=== PATIENT | male | born 1990 | race Caucasian/White ===

== ENCOUNTER 2022-12-26 20:53 | Emergency (ER) | payer SELFPAY ==
[~2022-12-26] VITALS: Ht 165.1 cm; Wt 70.3 kg
[~2022-12-26 20:53] MED LIST: ACHD5005 PO
--- NOTE | 2022-12-26 21:58 | ED Psychosocial ---
General Stated Complaint: SUICIDAL IDEATION/PAIN ALL OVER Source: patient, other (GIRLFRIEND) (JEAN ADRIAN DO) History of Present Illness Date Seen by Provider: Dec 26, 2022 Time Seen by Provider: 21:42 Initial Comments PT ARRIVES VIA POV FROM HOME WITH GIRLFRIEND PT C/O SUICIDAL IDEATIONS FOR A COUPLE OF DAYS, PT HAS NO PLAN AND NO ATTEMPT. PT HAS LONGSTANDING DRUG AND ALCOHOL ABUSE PT STATES HE HAS BEEN DRINKING 1 1/2 PINTS OF VODKA A DAY FOR AT LEAST THE LAST 10 YEARS. HE HAD 1 PINT OF VODKA TODAY, AND LAST DRINK WAS JUST PRIOR TO ARRIVAL PT HAS LONGSTANDING DRUG ABUSE--MOSTLY OPIATES--HYDROCODONE, OXYCODONE/OXY CONTINE, AND SUBOXONE--STATES HE GETS THEM OFF THE STREET, AND HAS NEVER BEEN PRESCRIBED THESE MEDICATIONS FOR HIMSELF. ALSO USES THC. HE HAD 1 SUBOXONE TODAY PT WAS IN [place] LAST MONTH, AND WAS WITHOUT DRUGS FOR A COUPLE OF DAYS AND DID HAVE SOME WITHDRAWL SYMPTOMS. HE DID NOT SEEK CARE HE HAS NEVER HAD ANY TREATMENT FOR SUBSTANCE ABUSE HE DID GO TO [facility] LAST YEAR SOMETIME, STATES HE WAS "TRYING TO GET HELP" BUT HE NEVER WENT BACK. HE DENIES ANY MEDICAL PROBLEMS AND THE ONLY MEDICATIONS HE TAKES ARE THE ONES HE GETS ON THE STREET. SYMPTOMS NO DIFFERENT TODAY IN ANY WAY. GIRLFRIEND STATES SHE JUST GOT BACK IN TOWN TODAY, AND THEN BROUGHT HIM HERE. PCP: NONE (JEAN ADRIAN DO) Allergies and Home Medications Allergies Coded Allergies: No Known Drug Allergies (Unverified , 04/24/16) Patient Home Medication List Home Medication List Reviewed: Yes (MENDY PEREIRA MD) Chlordiazepoxide HCl (Chlordiazepoxide HCl) 25 Mg Capsule, 25 MG PO Q6H Prescribed by: MENDY PEREIRA on 12/27/22903 Hydrocodone Bit/Acetaminophen (Lortab 5 Mg Tablet) 1 Each Tablet, 1-2 EACH PO Q4H PRN for PAIN Prescribed by: ELEANOR OLGUIN on 04/24/162031 Review of Systems Constitutional: no symptoms reported EENTM: no symptoms reported Respiratory: no symptoms reported Cardiovascular: no symptoms reported Gastrointestinal: no symptoms reported Genitourinary: no symptoms reported Musculoskeletal: no symptoms reported Skin: no symptoms reported Psychiatric/Neurological: See HPI (JEAN ADRIAN DO) Past Ekdcqcn-Unetis-Gresqa Hx Patient Social History Tobacco Use?: Yes Tobacco type used: Cigarettes Smoking Status: Former Smoker Use of E-Cig and/or Vaping dev: Yes E-Cig or Vaping type used: Nicotine Use of E-Cig and/or Vaping Mendez: Current Everyday User Substance use?: Yes Substance type: Opiates/Opioids, Misuse of prescript meds, Marijuana Substance frequency: Daily Alcohol Use?: Yes Alcohol type: Hard Liquor Alcohol Frequency: Daily (JEAN ADRIAN DO) Immunizations Up To Date Tetanus Booster (TDap): Less than 5yrs (JEAN ADRIAN DO) Past Medical History Surgeries: Yes (LEFT HAND, RIGHT KNEE) Orthopedic Respiratory: No Cardiac: No Neurological: No Reproductive Disorders: No Sexually Transmitted Disease: No Genitourinary: No Gastrointestinal: No Musculoskeletal: Yes (LEFT HAND AND RIGHT KNEE SURGERIES) Fractures Endocrine: No HEENT: No Psychosocial: Yes (POLYSUBSTANCE ABUSE) Integumentary: No Blood Disorders: No (JEAN ADRIAN DO) Family Medical History No Pertinent Family Hx SOCIAL HISTORY: -SMOKED CIGARETTES IN PAST, NOW VAPES NICOTINE -ETOH--DRINKS 1 1/2 PINTS OF VODKA/DAY -DRUGS--HYDROCODONE, OXYCODONE/OXYCONTIN, SUBOXONE, THC (JEAN ADRIAN DO) Physical Exam Vital Signs - First Documented 12/26/22 21:42 Temp 36.7 Pulse 146 Resp 18 B/P (MAP) 169/125 (140) Pulse Ox 97 O2 Delivery Room Air (MENDY PEREIRA MD) Capillary Refill : (JEAN ADRIAN DO) Height, Weight, BMI Height: 5'4" Weight: 145lbs. oz. 65.784378cu; BMI Method:Stated General Appearance: WD/WN, no apparent distress, other (SITTING GUINEAN-STYLE. DOES NOT APPEAR ILL OR TO BE IN ANY DISCOMFORT OR DISTRESSS. 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, no motor/sensory deficits, alert, oriented x 3 Appearance/Memory: no memory impairment Behavior/Eye Contact: cooperative, good eye contact, normal speech Thoughts/Hallucinations: no apparent hallucination Skin: normal color, warm/dry, tattoos/piercings (EXTENSIVE TATTOOS) (JEAN ADRIAN DO) Progress/Results/Core Measures Results/Orders Lab Results Laboratory Tests Test 12/26/22 22:10 12/26/22 22:24 Range/Units White Blood Count 6.1 4.3-11.0 10^3/uL Red Blood Count 5.37 4.30-5.52 10^6/uL Hemoglobin 17.5 13.3-17.7 g/dL Hematocrit 49 40-54 % Mean Corpuscular Volume 91 80-99 fL Mean Corpuscular Hemoglobin 33 25-34 pg Mean Corpuscular Hemoglobin Concent 36 32-36 g/dL Red Cell Distribution Width 13.2 10.0-14.5 % Platelet Count 235 130-400 10^3/uL Mean Platelet Volume 10.1 9.0-12.2 fL Immature Granulocyte % (Auto) 0 % Neutrophils (%) (Auto) 60 42-75 % Lymphocytes (%) (Auto) 32 12-44 % Monocytes (%) (Auto) 7 0-12 % Eosinophils (%) (Auto) 1 0-10 % Basophils (%) (Auto) 1 0-10 % Neutrophils # (Auto) 3.6 1.8-7.8 10^3/uL Lymphocytes # (Auto) 1.9 1.0-4.0 10^3/uL Monocytes # (Auto) 0.4 0.0-1.0 10^3/uL Eosinophils # (Auto) 0.1 0.0-0.3 10^3/uL Basophils # (Auto) 0.0 0.0-0.1 10^3/uL Immature Granulocyte # (Auto) 0.0 0.0-0.1 10^3/uL Percent Immature Platelet Fraction 6.4 0.0-7.6 % Sodium Level 140 135-145 MMOL/L Potassium Level 3.6 3.6-5.0 MMOL/L Chloride Level 98 98-107 MMOL/L Carbon Dioxide Level 21 21-32 MMOL/L Anion Gap 21 H 5-14 MMOL/L Blood Urea Nitrogen 13 7-18 MG/DL Creatinine 1.23 0.60-1.30 MG/DL Estimat Glomerular Filtration Rate 80 BUN/Creatinine Ratio 11 Glucose Level 125 H 70-105 MG/DL Calcium Level 10.8 H 8.5-10.1 MG/DL Corrected Calcium 8.5-10.1 MG/DL Magnesium Level 2.2 1.6-2.4 MG/DL Total Bilirubin 1.1 H 0.1-1.0 MG/DL Aspartate Amino Transf (AST/SGOT) 77 H 5-34 U/L Alanine Aminotransferase (ALT/SGPT) 54 0-55 U/L Alkaline Phosphatase 72 40-136 U/L Total Creatine Kinase 152 30-200 U/L Creatine Kinase MB 1.4 <6.6 NG/ML Myoglobin 39.6 10.0-92.0 NG/ML Troponin I < 0.028 <0.028 NG/ML B-Type Natriuretic Peptide 12.3 <100.0 PG/ML Total Protein 9.5 H 6.4-8.2 GM/DL Albumin 5.0 H 3.2-4.5 GM/DL Amylase Level 105 25-125 U/L TSH [facility] Testing 2.51 0.35-4.94 UIU/ML Salicylates Level < 5.0 L 5.0-20.0 MG/DL Acetaminophen Level < 10 L 10-30 UG/ML Serum Alcohol 382 *H <10 MG/DL Urine Color YELLOW Urine Clarity CLEAR Urine pH 6.5 5-9 Urine Specific [place] 1.020 1.016-1.022 Urine Protein 3+ H NEGATIVE Urine Glucose (UA) NEGATIVE NEGATIVE Urine Ketones 3+ H NEGATIVE Urine Nitrite NEGATIVE NEGATIVE Urine Bilirubin NEGATIVE NEGATIVE Urine Urobilinogen 0.2 < = 1.0 MG/DL Urine Leukocyte Esterase NEGATIVE NEGATIVE Urine RBC (Auto) 1+ H NEGATIVE Urine RBC RARE /HPF Urine WBC 0-2 /HPF Urine Crystals NONE /LPF Urine Bacteria NEGATIVE /HPF Urine Casts NONE /LPF Urine Mucus SMALL H /LPF Urine Culture Indicated NO Urine Opiates Screen POSITIVE H NEGATIVE Urine Oxycodone Screen POSITIVE H NEGATIVE Urine Methadone Screen NEGATIVE NEGATIVE Urine Propoxyphene Screen NEGATIVE NEGATIVE Urine Barbiturates Screen NEGATIVE NEGATIVE Ur Tricyclic Antidepressants Screen NEGATIVE NEGATIVE Urine Phencyclidine Screen NEGATIVE NEGATIVE Urine Amphetamines Screen NEGATIVE NEGATIVE Urine Methamphetamines Screen NEGATIVE NEGATIVE Urine Benzodiazepines Screen NEGATIVE NEGATIVE Urine Cocaine Screen NEGATIVE NEGATIVE Urine Cannabinoids Screen NEGATIVE NEGATIVE Influenza Type A (RT-PCR) Not Detected Not Detecte Influenza Type B (RT-PCR) Not Detected Not Detecte SARS-CoV-2 RNA (RT-PCR) Not Detected Not Detecte (MENDY PEREIRA MD) Medications Given in ED (MENDY PEREIRA MD) Vital Signs/I&O 12/27/22 09:23 Temp 36.0 Pulse 114 Resp 16 B/P (MAP) 139/101 Pulse Ox 95 O2 Delivery Room Air 12/27/22 00:00 Intake Total 1000 ml Balance 1000 ml (MENDY PEREIRA MD) Progress Progress Note : Progress Note PLACED IN ROOM 8 / SECURE ROOM MENTAL HEALTH SCREEN LABS/TESTS INITIATED PT IS TACHYCARDIC AND HYPERTENSIVE ON ARRIVAL VITALS NORMALIZED WITHOUT TREATMENT GIVEN: -IV FLUIDS SERUM ALCOHOL LEVEL IS TOO HIGH FOR MENTAL HEALTH SCREEN AT THIS TIME NO ICU OR STEP DOWN BEDS ARE AVAILABLE AT THIS TIME. WILL HOLD IN ER UNTIL BED BECOMES AVAILABLE UPSTAIRS, OR UNTIL PT IS SOBER ENOUGH TO DO MENTAL HEALTH SCREEN 0225--PT CONTINUES TO REMAIN CALM AND COOPERATIVE. IV FLUIDS CONTINUED. VITALS STABLE. 0430--PT CONTINUES TO REMAIN CALM AND COOPERATIVE. IV FLUIDS CONTINUED. VITALS STABLE. REVIEWED PRIOR RECORDS--ALL ER VISITS, LAST VISIT IN 2015 0600--CARE TURNED OVER TO DR. PEREIRA AT SHIFT CHANGE. PT REMAINS CALM AND COOPERATIVE AND HAS NO COMPLAINTS VITALS STABLE. (JEAN ADRIAN DO) Progress Note : Progress Note The patient started to have withdrawal symptoms around 7:30 AM. He was given oral Ativan 2 mg at that time. I discussed with the patient admission for formal alcohol detox given he will not be able to be medically cleared for psych evaluation at this time. The patient states that he actually is not suicidal at this time. He states when he is not acutely intoxicated he does not feel that way. He states he feels very motivated to stop drinking and has never gone through formal detox of any kind. I discussed prescribing Librium so he would not need to drink and discussed giving him mental health resources. Since he is not suicidal, told him I could not make him stay, and he states he would prefer to go home. He states he has his significant other that he would want to live for, and once again the patient is adamant that he does not want to hurt himself or hurt anyone else at this time. I told him to call 911 and come immediately back to the ER if things change which he is agreeable to. I believe he is otherwise stable for discharge with outpatient follow-up. He was sent home with strict return precautions. Of note, the patient had an infiltration of his IV with some fluids. There was minimal swelling, no redness, no pain at all. We monitored this for over an hour with no changes. I discussed what to look out for with the patient and when to come back to the ER regarding this. (MENDY PEREIRA MD) Initial ECG Impression Date: Dec 26, 2022 Initial ECG Impression Time: 22:23 Initial ECG Rate: 110 Initial ECG Rhythm: S.Tach Initial ECG Comparisson: No Previous ECG Available (JEAN ADRIAN DO) Departure Impression Primary Impression: Passive suicidal ideations Additional Impressions: ACUTE ALCOHOL INTOXICATION IN ACTIVE ALCOHOLIC Acute alcoholic intoxication in alcoholism, continuous drinking behavior Qualified Codes: F10.220 - Alcohol dependence with intoxication, uncomplicated CHRONIC ILLICIT OPIATE ABUSE Disposition: 01 HOME, SELF-CARE Condition: Improved Departure-Patient Inst. Decision time for Depature: 09:00 (MENDY PEREIRA MD) Referrals: NO,LOCAL PHYSICIAN (PCP/Family) Primary Care Physician Patient Instructions: Alcohol Intoxication ED, OUTPT MENTAL HEALTH SERVICES Add. Discharge Instructions: In this packet is a list of outpatient mental health resources. Please call to schedule an appointment so you can get some help. You will be on Librium to help with withdrawal symptoms. The first day you will take 2 capsules every 6 hours, second day 1 capsule every 6 hours, third day 1 capsule every 12 hours, fourth day 1 capsule at nighttime only. After that point, you will not go through withdrawal and you can stop taking the medicine and stop drinking alcohol without issue. Do not drink alcohol with this as it would make you very intoxicated and potentially dangerous. If you have any thoughts to harm yourself, please immediately call 911 and come back to the ER. Scripts Chlordiazepoxide HCl (Chlordiazepoxide HCl) 25 Mg Capsule 25 MG PO Q6H for 4 Days, #15 CAP Day 1 take 50 mg or 2 capsules every 6 hours, day 2 take 1 capsule every 6 hours, day 3 take 1 capsule every 12 hours, day 4 take 1 capsule at nighttime Prov: MENDY PEREIRA MD 12/27/22 Work/School Note: Work Release Form Date Seen in the Emergency Department: Dec 27, 2022 Return to Work: Dec 28, 2022 Restrictions: No Restrictions JEAN ADRIAN DO Dec 26, 2022 21:58 MENDY PEREIRA MD Dec 27, 2022 08:53
[2022-12-26] MEDS ORDERED: LACTATED RINGERS 1,000 ML IV ONE (22:00)
[2022-12-26 22:23] LABS: BASOPHILS % (AUTO) 1 % (0-10); EOSINOPHILS # (AUTO) 0.1 10^3/uL (0.0-0.3); EOSINOPHILS % (AUTO) 1 % (0-10); HEMATOCRIT 49 % (40-54); HEMOGLOBIN 17.5 g/dL (13.3-17.7); LYMPHOCYTES # (AUTO) 1.9 10^3/uL (1.0-4.0); LYMPHOCYTES % (AUTO) 32 % (12-44); MEAN CORPUSCULAR HEMOGLOBIN 33 pg (25-34); MEAN CORPUSCULAR HGB CONC 36 g/dL (32-36); MEAN CORPUSCULAR VOLUME 91 fL (80-99); MEAN PLATELET VOLUME 10.1 fL (9.0-12.2); MONOCYTES # (AUTO) 0.4 10^3/uL (0.0-1.0); MONOCYTES % (AUTO) 7 % (0-12); NEUTROPHILS # (AUTO) 3.6 10^3/uL (1.8-7.8); NEUTROPHILS % (AUTO) 60 % (42-75); PLATELET COUNT 235 10^3/uL (130-400); WHITE BLOOD COUNT 6.1 10^3/uL (4.3-11.0)
[2022-12-26] MEDS ORDERED: LABETALOL HCL 20 MG/4 ML VIAL IV ONE (22:30)
[2022-12-26 22:32] LABS: BILIRUBIN,URINE NEGATIVE (NEGATIVE); CLARITY,URINE CLEAR; COLOR,URINE YELLOW; GLUCOSE, URINE (UA) NEGATIVE (NEGATIVE); KETONES,URINE 3+ (NEGATIVE); LEUKOCYTE ESTERASE ,URINE NEGATIVE (NEGATIVE); NITRITE,URINE NEGATIVE (NEGATIVE); PH,URINE 6.5 (5-9); PROTEIN,URINE 3+ (NEGATIVE)
[2022-12-26 22:40] LABS: RBC,URINE RARE /HPF; WBC,URINE 0-2 /HPF
[2022-12-26 22:41] LABS: BACTERIA,URINE NEGATIVE /HPF
[2022-12-26 22:42] LABS: ALANINE AMINOTRANSFERASE 54 U/L (0-55); ALKALINE PHOSPHATASE 72 U/L (40-136); AMYLASE 105 U/L (25-125); BILIRUBIN,TOTAL 1.1 MG/DL (0.1-1.0); BUN/CREATININE RATIO 11; CALCIUM 10.8 MG/DL (8.5-10.1); CARBON DIOXIDE 21 MMOL/L (21-32); CHLORIDE 98 MMOL/L (98-107); CREATINE KINASE 152 U/L (30-200); CREATININE SERUM 1.23 MG/DL (0.60-1.30); GFR ESTIMATED 80; GLUCOSE 125 MG/DL (70-105); MAGNESIUM 2.2 MG/DL (1.6-2.4); POTASSIUM 3.6 MMOL/L (3.6-5.0); SALICYLATE < 5.0 MG/DL (5.0-20.0); SODIUM 140 MMOL/L (135-145); TOTAL PROTEIN 9.5 GM/DL (6.4-8.2)
[2022-12-26 22:47] LABS: AMPHETAMINE SCREEN, URINE NEGATIVE (NEGATIVE); BARBITURATE SCREEN URINE NEGATIVE (NEGATIVE); BENZODIAZEPINES SCREEN URINE NEGATIVE (NEGATIVE); CANNABINOID SCREEN, URINE NEGATIVE (NEGATIVE); COCAINE SCREEN URINE NEGATIVE (NEGATIVE); METHADONE STAT NEGATIVE (NEGATIVE); OPIATE SCREEN URINE POSITIVE (NEGATIVE); OXYCODONE STAT POSITIVE (NEGATIVE); TRICYCLIC ANTIDEPRESSANTS SCRE NEGATIVE (NEGATIVE)
[2022-12-26 22:48] LABS: PROPOXYPHENE STAT NEGATIVE (NEGATIVE)
[2022-12-26 22:49] LABS: ACETAMINOPHEN < 10 UG/ML (10-30)
[2022-12-26 23:01] LABS: CREATINE KINASE MB 1.4 NG/ML (<6.6); TSH (THYROID ANALYZER) 2.51 UIU/ML (0.35-4.94)
[2022-12-27] MEDS ORDERED: LACTATED RINGERS 1,000 ML IV ONE
[2022-12-27] MEDS ORDERED: D5 1/2 NS W/KCL 20 MEQ/L 1,000 ML IV SCH (02:00)
--- NOTE | 2022-12-27 06:48 | Diagnostic Imaging Report ---
INDICATION: Tachycardia, hypertension Portable chest 10:26 PM Heart size and pulmonary vascularity are normal. Lungs are clear. There are no effusions or pneumothoraces. IMPRESSION: Negative chest Dictated by: Dictated on workstation # [id number]
[2022-12-27] MEDS ORDERED: CHLO25CA10 PO (09:03)
[2022-12-27 09:23] VITALS: BP 139/101
== END 2022-12-27 09:23 | disposition home or self-care (01) ==
LOC: EDUNIT# 20:53 → ER 20:58
DX: R45.851 Suicidal ideations (principal); F10.129 Alcohol abuse with intoxication, unspecified; F11.10 Opioid abuse, uncomplicated; F17.290 Nicotine dependence, other tobacco product, uncomplicated; Z20.822 Contact with and (suspected) exposure to COVID-19; Z28.311 Partially vaccinated for COVID-19
CPT/HCPCS: 71045; 80053; 80306; 81000; 82150; 82550; 82553; 83735; 83874; 83880; 84443; 84484; 85025; 87636; 93005; 93041; 99284; G0480 ×3; 36415; 80320; 80329